=== PATIENT | female | born 1945 | race Caucasian/White ===

== ENCOUNTER 2016-11-06 10:26 | Observation (INO) | payer BC, OTHER ==
[2016-11-06] VITALS (8 sets, daily range): BP systolic 121–174; BP diastolic 61–99; PULSE 71–144; RESP 16–20; TEMP 97.7; O2SAT 95–98
[2016-11-06] MEDS ORDERED: VENTAER INH (10:49)
[2016-11-06] MEDS ORDERED: AMLO5TAB2 PO (10:49)
[2016-11-06] MEDS ORDERED: METF500T PO (10:49)
[2016-11-06] MEDS ORDERED: SODIUM CHLORIDE 0.9% FLUSH 10 ML FLUSH IVF PRN (11:00)
[2016-11-06 11:13] LABS: AUTOMATED NEUTROPHIL # 3.3 TH/MM3 (1.8-7.7); BASOPHIL # 0.1 TH/MM3 (0-0.2); BASOPHIL % 1.2 % (0.0-2.0); EOSINOPHIL # 0.2 TH/MM3 (0-0.4); EOSINOPHIL % 2.6 % (0.0-4.0); HEMATOCRIT 42.1 % (35.0-46.0); HEMO FLAGS DIFF FINAL; LYMPH % 35.2 % (9.0-44.0); LYMPHOCYTE # 2.3 TH/MM3 (1.0-4.8); MEAN CELL VOLUME 85.6 FL (80.0-100.0); MEAN CORPUSCULAR HEMOGLOBIN 28.3 PG (27.0-34.0); MEAN CORPUSCULAR HGB CONC 33.1 % (32.0-36.0); MONO % 10.9 % (0.0-8.0); NEUT % 50.1 % (16.0-70.0); PLATELET COUNT 297 TH/MM3 (150-450); RED BLOOD COUNT 4.91 MIL/MM3 (4.00-5.30); RED CELL DISTRIBUTION WIDTH 13.7 % (11.6-17.2); WHITE BLOOD COUNT 6.6 TH/MM3 (4.0-11.0)
[2016-11-06] MEDS ORDERED: DILTIAZEM HCL 25 MG/5 ML VIAL IV PUSH ONE (11:15)
--- NOTE | 2016-11-06 11:21 | PD ---
HPI . abnormal EKG Chief Complaint: Cardiac Complaint Time Seen by Provider: 10:42 Travel History International Travel<30 days: No Contact w/Intl Traveler<30days: No Traveled to known affect area: No History of Present Illness HPI 71 year old female presents to the ED after being sent by Dr. Bucio for atrial fibrillation. Per patient, she was seeing Dr. Bucio for a cyst removal on her arm today when they found her to be in A-fib. She has no prior history of this. She was seen by her office auditor in August for follow up of a mitral valve replacement from 2003 and had no issues at that time. She denies any current chest pain or palpitations. Reports some slight shortness of breath which she says is her usual baseline. Patient does not recall any recent new symptoms and has been feeling well. Her only report is that last night she felt "more winded than usual". However she does state that she was very tired and was exerting herself and is unsure if there is any correlation. She denies any fevers, chills, chest pain, leg pain or swelling. As the patient has no symptoms of atrial fibrillation, she has not noted any exacerbating or relieving factors. PFSH Past Medical History Cardiac Catheterization: Yes Cardiovascular Problems: Yes Diabetes: Yes Patient Takes Glucophage: Yes Diminished Hearing: No Hypertension: Yes Immunizations Current: No Tetanus Vaccination: Unknown Influenza Vaccination: Yes Past Surgical History Valve Replacement: Yes (MITRAL VALVE REPAIR 2003 ) Social History Alcohol Use: No Tobacco Use: No Substance Use: No Allergies-Medications (Allergen,Severity, Reaction): Coded Allergies: Codeine (Verified Allergy, Unknown, GI UPSET , 11/06/16) Erythromycin (Verified Allergy, Unknown, GI UPSET , 11/06/16) Reported Meds & Prescriptions Reported Meds & Active Scripts Active Reported Ventolin Hfa 18 GM Inh (Albuterol Sulfate) 90 Mcg/Act Aer 2 Puff INH Q6H PRN Metformin (Metformin HCl) 500 Mg Tab 500 Mg PO BIDPC With meals Amlodipine (Amlodipine Besylate) 5 Mg Tab 5 Mg PO DAILY Review of Systems Except as stated in HPI: all other systems reviewed are Neg General / Constitutional: No: Fever, Chills HENT: No: Headaches, Lightheadedness Cardiovascular: Positive: Irregular Rhythm, Tachycardia, Dyspnea on exertion ( chronic), No: Chest Pain or Discomfort, Palpitations Respiratory: Positive: Shortness of Breath (chronic ), No: Cough, Wheezing Gastrointestinal: No: Nausea, Vomiting, Diarrhea, Abdominal Pain Skin: No Rash Neurologic: No: Weakness, Dizziness, Syncope, Change in Mentation, Slurred Speech Physical Exam Narrative GENERAL: Awake and alert female in no acute distress. SKIN: Warm and dry. No rashes. HEAD: Atraumatic. Normocephalic. EYES: Pupils equal and round. Extraocular eye movements intact. ENT: No nasal bleeding or discharge. Mucous membranes pink and moist. NECK: Trachea midline. Neck supple. CARDIOVASCULAR: Episodic tachycardia, irregular rhythm. RESPIRATORY: No accessory muscle use. Lungs clear to auscultation bilaterally. Good air movement. No wheezing or crackles. GASTROINTESTINAL: Abdomen soft, non-tender, nondistended. MUSCULOSKELETAL: No obvious deformities. 1+ edema of bilateral lower extremities to the mid gomez. NEUROLOGICAL: Awake and alert. No obvious cranial nerve deficits. Motor grossly within normal limits. Normal speech. PSYCHIATRIC: Appropriate mood and affect; insight and judgment normal. Data Data Last Documented VS Vital Signs Date Time Temp Pulse Resp B/P Pulse Ox O2 Delivery O2 Flow Rate FiO2 11/06/16 11:41 71 20 121/68 98 Nasal Cannula 2 11/06/16 10:29 97.7 Orders Electrocardiogram (11/06/16 ) Basic Metabolic Panel (Bmp) (11/06/16 10:47) Ckmb (Isoenzyme) Profile (11/06/16 10:47) Complete Blood Count With Diff (11/06/16 10:47) D-Dimer (11/06/16 10:47) Magnesium (Mg) (11/06/16 10:47) Prothrombin Time / Inr (Pt) (11/06/16 10:47) Act Partial Throm Time (Ptt) (11/06/16 10:47) Troponin I (11/06/16 10:47) Chest, Single Ap (11/06/16 10:47) Ecg Monitoring (11/06/16 10:47) Iv Access Insert/Monitor (11/06/16 10:47) Oximetry (11/06/16 10:47) Sodium Chloride 0.9% Flush (Ns Flush) (11/06/16 11:00) Thyroid Stimulating Hormone (11/06/16 11:09) Diltiazem Inj (Cardizem Inj) (11/06/16 11:15) CKMB (11/06/16 10:40) CKMB% (11/06/16 10:40) Ct Pulmonary Angiogram (11/06/16 11:54) Iohexol 350 Inj (Omnipaque 350 Inj) (11/06/16 13:16) Place In Observation (11/06/16 ) Vital Signs (Adult) Q4H (11/06/16 14:07) Activity Oob Ad Nicole (11/06/16 14:07) Intake + Output BRIDGET.QSHIFT (11/06/16 14:07) Diet Heart Healthy (11/06/16 Dinner) Diet 1800 Ada Cons Carb (11/06/16 Dinner) Sodium Chloride 0.9% Flush (Ns Flush) (11/06/16 14:15) Sodium Chloride 0.9% Flush (Ns Flush) (11/06/16 21:00) Metoprolol Tartrate (Lopressor) (11/06/16 21:00) Troponin I (11/06/16 14:07) Troponin I (11/06/16 20:07) Creatine Kinase (Cpk) (11/06/16 14:07) Creatine Kinase (Cpk) (11/06/16 20:07) Echo 2d Comp With Doppler (11/06/16 ) Resp Oxygen Hay C Titrat 1-4 L (11/06/16 ) Higher Level Teaching Assistant / Telemetry BRIDGET.Q8H (11/06/16 14:07) Scd Bilateral/Knee High BRIDGET.BID (11/06/16 14:07) Albuterol Hfa Inh (Proair Hfa Inh) (11/06/16 14:15) Metformin (Glucophage) (11/06/16 18:00) Bedside Glucose BRIDGET.AC&HS (11/06/16 14:26) Blood Glucose Goal (Criteria) (11/06/16 14:26) Hypoglycemia 70 Mg/Dl Or < (11/06/16 14:26) Notify Dr: Other (11/06/16 14:26) Dextrose 50% In Jessi (Vial) Inj (D50w (Vi (11/06/16 14:30) Glucagon Inj (Glucagon Inj) (11/06/16 14:30) Insulin Aspart Supplemtl Scale (Novolog (11/06/16 16:00) Potassium Chloride (Kcl) (11/06/16 14:30) Acetaminophen (Tylenol) (11/06/16 14:30) Ondansetron Inj (Zofran Inj) (11/06/16 14:30) Naloxone Inj (Narcan Inj) (11/06/16 14:30) Docusate Sodium-Senna (Kelsi-Colace) (11/06/16 21:00) Magnesium Hydroxide Liq (Milk Of Magnesi (11/06/16 14:30) Sennosides (Senokot) (11/06/16 14:30) Lactulose Liq (Lactulose Liq) (11/06/16 14:30) Labs Laboratory Tests Test 11/06/16 10:40 White Blood Count 6.6 TH/MM3 Red Blood Count 4.91 MIL/MM3 Hemoglobin 13.9 GM/DL Hematocrit 42.1 % Mean Corpuscular Volume 85.6 FL Mean Corpuscular Hemoglobin 28.3 PG Mean Corpuscular Hemoglobin 33.1 % Concent Red Cell Distribution Width 13.7 % Platelet Count 297 TH/MM3 Mean Platelet Volume 9.0 FL Neutrophils (%) (Auto) 50.1 % Lymphocytes (%) (Auto) 35.2 % Monocytes (%) (Auto) 10.9 % Eosinophils (%) (Auto) 2.6 % Basophils (%) (Auto) 1.2 % Neutrophils # (Auto) 3.3 TH/MM3 Lymphocytes # (Auto) 2.3 TH/MM3 Monocytes # (Auto) 0.7 TH/MM3 Eosinophils # (Auto) 0.2 TH/MM3 Basophils # (Auto) 0.1 TH/MM3 CBC Comment DIFF FINAL Differential Comment Prothrombin Time 11.3 SEC Prothromb Time International 1.0 RATIO Ratio Activated Partial 27.5 SEC Thromboplast Time D-Dimer Quantitative (PE/DVT) 0.85 MG/L FEU Sodium Level 137 MEQ/L Potassium Level 3.8 MEQ/L Chloride Level 104 MEQ/L Carbon Dioxide Level 24.6 MEQ/L Anion Gap 8 MEQ/L Blood Urea Nitrogen 16 MG/DL Creatinine 0.68 MG/DL Estimat Glomerular Filtration 86 ML/MIN Rate Random Glucose 106 MG/DL Calcium Level 9.4 MG/DL Magnesium Level 2.3 MG/DL Total Creatine Kinase 233 U/L Creatine Kinase MB 6.1 NG/ML Creatine Kinase MB % 2.6 % Troponin I 0.02 NG/ML Thyroid Stimulating Hormone 2.250 uIU/ML 3rd Gen [facility] Medical Decision Making Medical Screen Exam Complete: Yes Emergency Medical Condition: Yes Interpretation(s) EKG shows atrial fibrillation with a ventricular response of about 140. She also has a right bundle branch block. Her most recent old EKG here was from 2004 and is not viewable in the EHR. Differential Diagnosis Differentials include AK, atrial fibrillation, SVT, hyperthyroidism, PE. Narrative Course Patient was sent to the ED by Dr. Bucio after being found to be in A-fib prior to a cyst removal of left forearm. Patient denies any symptoms at this time and denies any prior history of A-fib. She has a history of mitral valve replacement in 2003 but no history of AK or strokes. Chest pain workup and thyroid studies were ordered. Patient will receive diltiazem and will be observed for response. Last Impressions Chest X-Ray 11/06/16 1047 Signed Impressions: Service Date/Time: Sunday, November 06, 2016 10:53 - CONCLUSION: Slight cardiomegaly. Itzel Sim MD After 1 dose of diltiazem patient's heart rate responded appropriately. CBC was normal. D-dimer was elevated at 0.85 and CTA of the chest was performed and showed no evidence of PE. CK-MB % 2.6 of the total CK, Troponin I was 0.02. Patient will be admitted with cardiology consult for new onset A-fib. She continues to be in atrial fibrillation on diltiazem. However, her rate is controlled following a single dose of diltiazem. Procedures Procedure Narrative EKG showed atrial fibrillation with rapid ventricular response and a right bundle branch block. Physician Communication Physician Communication Discussed with Dr. Storey. She will be admitted to OBS. Diagnosis Primary Impression: Atrial fibrillation with rapid ventricular response Admitting Information Admitting Physician Requests: Observation Condition: Stable Nicole Ritter MD Nov 06, 2016 11:21
[2016-11-06 11:35] LABS: APTT (PATIENT) 27.5 SEC (24.3-30.1); PROTHROMBIN TIME - PATIENT 11.3 SEC (9.8-11.6)
[2016-11-06 11:37] LABS: BICARBONATE 24.6 MEQ/L (21.0-32.0); MAGNESIUM 2.3 MG/DL (1.5-2.5); POTASSIUM 3.8 MEQ/L (3.5-5.1)
[2016-11-06 11:55] LABS: CKMB 6.1 NG/ML (0.5-3.6)
--- NOTE | 2016-11-06 12:39 | RADRPT ---
EXAM DATE/TIME: 11/06/2016 10:53 [facility] COMPARISON: No previous studies available for comparison. INDICATIONS : Shortness of breath and abnormal heart rate. MEDICAL HISTORY : Atrial fibrillation. SURGICAL HISTORY : Mitral valve replacment. ENCOUNTER: Initial ACUITY: 1 day PAIN SCORE: 0/10 LOCATION: Bilateral chest FINDINGS: The lungs are clear without infiltrate, nodule, or mass. There is no appreciable pleural effusion fo r technique. There is slight cardiomegaly. There is evidence for prior median sternotomy. CONCLUSION: Slight cardiomegaly. Itzel Sim MD on November 06, 2016 at 12:37 Board Certified Radiologist. This report was verified electronically.
[2016-11-06] MEDS ORDERED: IOHEXOL 350 MG/ML 10 ML VIAL (for RAD DIAG) IV ONE (13:16)
--- NOTE | 2016-11-06 13:42 | RADRPT ---
EXAM DATE/TIME: 11/06/2016 13:07 [facility] COMPARISON: CHEST SINGLE AP, November 06, 2016, 10:53. INDICATIONS : New atrial fibrillation. IV CONTRAST: 65 cc Omnipaque 350 (iohexol) IV RADIATION DOSE: 15.8 CTDIvol (mGy) MEDICAL HISTORY : Cardiovascular disease. Hypertension. Diabetes mellitus type 2. SURGICAL HISTORY : Mitral valve replacement. ENCOUNTER: Initial ACUITY: 1 day PAIN SCALE: 0/10 LOCATION: Bilateral chest TECHNIQUE: Volumetric scanning of the chest was performed using a pulmonary embolism protocol MIP images were re constructed. Using automated exposure control and adjustment of the mA and/or kV according to patien t size, radiation dose was kept as low as reasonably achievable to obtain optimal diagnostic quality images. DICOM format image data is available electronically for review and comparison. Follow-up recommendations for incidentally detected pulmonary nodules are based at a minimum on nodul e size and patient risk factors according to Fleischner Society Guidelines. FINDINGS: The lungs are clear without infiltrate, nodule, or mass. There is no pleural effusion. No appreciab le pathological adenopathy is seen within the mediastinum. There is slight scar or atelectasis right lower lobe posteromedially. There is no evidence for PE for technique. CONCLUSION: There is no evidence for PE for technique. Itzel Sim MD on November 06, 2016 at 13:39 Board Certified Radiologist. This report was verified electronically.
[2016-11-06] MEDS ORDERED: ALBUTEROL SULFATE 90 MCG/ACT HFA 8 GM INHALER INH PRN (14:15)
[2016-11-06] MEDS ORDERED: SODIUM CHLORIDE 0.9% FLUSH 10 ML FLUSH IV FLUSH PRN (14:15)
[2016-11-06] MEDS ORDERED: ACETAMINOPHEN 325 MG TAB PO PRN (14:30)
[2016-11-06] MEDS ORDERED: SENNOSIDES 8.6 MG TAB PO PRN (14:30)
[2016-11-06] MEDS ORDERED: LACTULOSE SYRUP 20 GM/30 ML CUP PO PRN (14:30)
[2016-11-06] MEDS ORDERED: NALOXONE HCL 0.4 MG/ML AMP IV PRN (14:30)
[2016-11-06] MEDS ORDERED: GLUCAGON 1 MG/ML VIAL OTHER PRN (14:30)
[2016-11-06] MEDS ORDERED: ONDANSETRON HCL 4 MG/2 ML VIAL IVP PRN (14:30)
[2016-11-06] MEDS ORDERED: DEXTROSE 50% IN WATER 50 ML VIAL(D50) IV PRN (14:30)
[2016-11-06] MEDS ORDERED: MAGNESIUM HYDROXIDE SUSP 30 ML CUP PO PRN (14:30)
[2016-11-06] MEDS ORDERED: CARD180C5 PO (14:57)
[2016-11-06] MEDS ORDERED: APIX5TAB PO (14:59)
[2016-11-06] MEDS ORDERED: POTASSIUM CHLORIDE 20 MEQ CONTROLLED RELEASE TAB PO ONE (15:00)
[2016-11-06] MEDS ORDERED: INSULIN ASPART SUPPLEMENTAL SCALE SQ SCH (16:00)
[2016-11-06] MEDS ORDERED: metFORMIN HCL 500 MG TAB PO SCH (18:00)
[2016-11-06] MEDS ORDERED: SODIUM CHLORIDE 0.9% FLUSH 10 ML FLUSH IV FLUSH SCH (21:00)
[2016-11-06] MEDS ORDERED: DOCUSATE SODIUM 50 MG/SENNA 8.6 MG TAB PO SCH (21:00)
[2016-11-06] MEDS ORDERED: METOPROLOL TARTRATE 50 MG TAB PO SCH (21:00)
--- NOTE | 2016-11-07 10:39 | EKG ---
Date Performed: 11/06/2016 Time Performed: 10:39:00 PTAGE: 71 years EKG: ATRIAL FLUTTER/TACHYCARDIA WITH RAPID VENTRICULAR RESPONSE RIGHT BUNDLE BRANCH BLOCK ABNORM AL ECG PREVIOUS TRACING : 09/09/2004 12.39 DOCTOR: Derik Clark Interpretating Date/Time 11/07/2016 10:37:10
[2016-11-09 06:36] VITALS: O2SAT 96
== END 2016-11-06 15:30 | disposition home or self-care (01) ==
LOC: NEPC 10:26 → NEDA 14:37
PROVIDERS: ADMIT Internal Medicine; ATTEND Internal Medicine
DX: I48.91 Unspecified atrial fibrillation (principal); E11.9 Type 2 diabetes mellitus without complications; I10 Essential (primary) hypertension; Z79.84 Long term (current) use of oral hypoglycemic drugs; Z79.899 Other long term (current) drug therapy; I45.10 Unspecified right bundle-branch block; Z95.2 Presence of prosthetic heart valve
CPT/HCPCS: 71010; 71275; 80048; 82550; 82552; 83735; 84443; 84484; 85025; 85379; 85610; 85730; 93005; 96374; 99285; Q9967

== ENCOUNTER → 2017-02-09 | Day surgery (SDC) | payer OTHER ==
[~2017-02-09] MED LIST: ACETAMINOPHEN 325 MG TAB ONE; AMLO5TAB2 PO; APIX5TAB PO; BUPIVACAINE HCL PF 0.75% 30 ML VIAL ONE; CARD180C5 PO; LACTATED RINGER'S 1000 ML INJ 1,000 ML ONE; METF500T PO; MIDAZOLAM HCL 2 MG/2 ML VIAL ONE; MIDAZOLAM HCL 5 MG/5 ML VIAL ONE; ONDANSETRON HCL 4 MG/2 ML VIAL IV PUSH ONE; PROPOFOL 200 MG/20 ML AMP IV ONE; VENTAER INH; ceFAZolin INJ 1,000 MG VIAL ONE
--- NOTE | 2017-02-09 20:33 | MP ---
cc: BARRON MENDIETA M.D. DATE OF SURGERY 02/09/17 PREOPERATIVE DIAGNOSIS Right shoulder massive rotator cuff tear with impingement, proximal biceps tendon tear and superior labral tear, acromioclavicular osteoarthritis. POSTOPERATIVE DIAGNOSIS Right shoulder massive rotator cuff tear with impingement, proximal biceps tendon tear and superior labral tear, acromioclavicular osteoarthritis. SURGEON Va Mendieta MD CHANGE DIRECTOR BENJAMIN Ramirez The surgical procedure was assisted by my Advanced Registered Nurse Practitioner. My MACHINE DRILLER presence was necessary throughout this case for the manipulation and positioning of the surgical extremity. My MACHINE DRILLER was assisting me throughout the duration of this procedure. The skill set of an Advance Registered Nurse Practitioner was medically necessary to complete this procedure. During the surgical case, the surgical supervisor was working at the back table and the Advance Registered Nurse Practitioner was directly assisting me. PROCEDURE Right shoulder arthroscopic rotator cuff repair of massive tear with extensive debridement of superior labrum, proximal biceps, undersurface of the distal clavicle and CA ligament with subacromial decompression and partial acromioplasty. ESTIMATED BLOOD LOSS Minimal ANESTHESIA Regional and general. PROCEDURE IN DETAIL The patient had regional anesthesia administered. She was brought to the operative theater, general anesthesia was administered. She was placed into a lateral decubitus position with an axillary roll and a well-padded down leg. The patient had received intravenous Ancef. The right upper extremity was placed into 12 pounds of in-line traction. The right upper extremity was prepped and draped in usual sterile fashion. We started with standard diagnostic arthroscopy through a posterior portal. We identified that immediately there was a massive rotator cuff tear. The glenohumeral joint had no significant chondromalacia. The axillary pouch was free of loose bodies. We found that there was a proximal biceps tendon rupture with frayed edges of the tendon still attached to the superior labrum along with extensive tearing of this labrum anteriorly and posteriorly. The subscapularis tendon was intact. We identified that the rotator cuff tear was retracted to about the medial third of the humeral head in certain places and then all the way to the glenohumeral joint in other places. We placed the arthroscope in the subacromial space and then created accessory portals laterally. We then using an oscillating shaver to debride the superior labrum at the biceps tendon stump. We debrided the edges of the stump. We then debrided the edges of the superior labrum anterior and posterior which were torn. We debrided the edge of the rotator cuff to identifying as good leading edge as possible. Note that the supraspinatus tendon was immediately retracted and then there was a split between the supraspinatus tendon and infraspinatus tendon along with some cleavage tearing in the superior inferior aspect of the cuff in that region as well. We performed subacromial decompression. There was quite a bit of bursa that needed to be removed. There was some bone spur at the undersurface of the acromion which was resected using a shaver and/or a bur. There was a large osteophyte on the undersurface of the distal clavicle which was also removed using a shaver and the ___ligament was thickened and this was resected. We tried mobilizing the cuff and found that it was fairly stuck immediately so we ended up using several mobilizing techniques using elevators and the shaver to mobilize the cuff as much as possible. With these techniques, we were able to anatomically mobilize the posterior cuff, but the supraspinatus tendon was not able to quite get fully anatomic. We did then shave down some of the superior lateral cartilage in order to medialize the repair somewhat. We rechecked and found that we had good mobilization, although there was still some tension to the cuff itself. We prepared the greater tuberosity with a shaver and also a bur for repair. We then proceeded with repairing the rotator cuff using a modified suture bridge technique using two medial Arthrex bio cork screws. Each of these had two individual fiber wires attached and we ended up throwing four horizontal mattress stitches. We then complemented this with another posterior length that was in the infraspinatus tendon to help complete a very nice laying down to the tendon posteriorly. We tied the four anterior sutures with a standard arthroscopic knot tying technique and then we crisscrossed all these sutures to laid them down laterally. The free edge suture for the link went to the posterolateral anchor. We then placed the sutures laterally using two Arthrex bio-swivel locks with very nice reduction of the tendon. Overall. we felt that we had an excellent repair given the difficult tendon tear including the significant retraction. The arthroscopic portals were closed with 2-0 Vicryl followed by 3-0 nylon. The patient's arm was dressed and this was placed into an abduction pillow. Postoperative plan is to follow standard massive rotator cuff repair protocol. MD ABISAI Washburn/ /3:39 PM /8:05 PM
== END | disposition home or self-care (01) ==
LOC: ESDC 12:22
PROVIDERS: ATTEND Orthopaedic Surgery
DX: M75.101 Unspecified rotator cuff tear or rupture of right shoulder, not specified as traumatic (principal); S46.211A Strain of muscle, fascia and tendon of other parts of biceps, right arm, initial encounter; M19.011 Primary osteoarthritis, right shoulder; S43.431A Superior glenoid labrum lesion of right shoulder, initial encounter
CPT/HCPCS: 01630; 01991; 29823; 29826; 29827; 64417; C1713; J0690; J2250; J2405; J7120